=== PATIENT | male | born 1995 | race African-American/Black ===

== ENCOUNTER 2018-01-30 20:30 | Inpatient (IN) ==
[2018-01-30] MEDS ORDERED: Sodium Chlor 0.9% Inj 500 ML IV.SIG ONE (21:07)
--- NOTE | 2018-01-30 21:10 | ED ---
HPI General Chief Complaint: Chest Pain Stated Complaint: Chest/back pain Time Seen by Provider: 01/30/18 21:06 Source: patient Limitations: no limitations History of Present Illness HPI narrative: The patient is a 22 year old male who presents to the [facility] emergency department with a history of reportedly not feeling well over the last 2 months. He reports that he began to have back pain between his shoulder blades approximately 2 months ago. He reports that this is the first time that he is being seen for this. He reports that 2 days ago he began to have chest pain along the right sternal border. He reports that it is tender to touch. He reports that his recent history is also been complicated by last week having a subjective fever and sore throat. He denies having any cough or congestion. He reports that he had a subjective fever from Wednesday through . He reports that the fever and sore throat have improved. He reports having one episode of vomiting this morning. He denies having any diarrhea. His last bowel movement was earlier today. He denies having any blood in his stool or black or tarry stools. He reports that he has not been eating well over the last week as he has not felt well. He reports that he believes that he has lost weight, however he is not sure how much. He denies having a primary care physician. He denies any history of IV drug use. The patient reports that the pain in his chest and in his back is an aching sensation that is constant. He reports that the severity is moderate. He denies taking any medications for the pain. I review of systems otherwise, the patient denies having any headache, nasal discharge, chest congestion, neck pain, shortness of breath, abdominal pain, urinary symptoms, or neurologic symptoms. Complete Quality Measures for STEMI Alert Patients Onset (ago): day(s) (2 days ago) Duration: constant Pain location: right chest (right sternal border) Severity: moderate Pain radiation: none Relieving factors: nothing Exacerbating factors: nothing Context: recent illness (sorethroat with subjective fever last week) Associated symptoms: nausea and vomiting (x 1 this am) Treatments prior to arrival chest pain: none Related Data Home Medications Medication Instructions Recorded Confirmed No Known Home Medications 01/30/18 01/30/18 Allergies Allergy/AdvReac Type Severity Reaction Status Date / Time No Known Allergies Allergy Unverified 01/30/18 20:54 Review of Systems ROS Unobtainable All other systems reviewed negative except as stated in HPI Constitutional Reports fever(s), Reports poor appetite and Reports weight loss Eyes Denies change in vision ENT Denies headache(s), Denies nasal congestion and Reports sore throat Cardiovascular Reports chest pain Respiratory Denies chest congestion, Denies cough and Denies dyspnea Gastrointestinal Denies abdominal pain, Denies diarrhea, Reports nausea and Reports vomiting Genitourinary Denies difficulty urinating Musculoskeletal Reports back pain and Reports myalgias Integumentary/Breasts Denies rash Neurologic Denies headache(s), Denies focal weakness, Denies sensory deficit, Denies tingling, Denies weakness and Reports other (He denies having any loss of bowel or bladder control) Psychiatric Denies depression Endocrine Denies polyuria Hematologic/Lymphatic Denies easy bruising PMFSH History History Provided By: Patient Medical History Medical History Patient denies medical problems (Acute) Surgical History Surgical History No history of previous surgery (Acute) Social History Social History Substance History: No History of Abuse Second Hand Smoke Exposure: No Smoking Status: Never smoker How Often Do You Have a Drink Containing Alcohol: 2 to 3 times a week Recent Travel in [facility] within the Last 8 Weeks: No Recent Out of Country Travel within the Last 8 Weeks: No Exam Const General: cooperative, no acute distress and well developed Nutritional Appearance: well nourished Orientation: oriented x3 HENMT Head: normocephalic and atraumatic Nose: no nasal discharge and no epistaxis Mouth: moist mucous membranes Throat: posterior oropharynx normal Eyes Sclera: normal sclerae Pupils: PERRL Neck Neck: no meningeal signs, trachea midline and no JVD Resp Effort & Inspection: no use of accessory muscles Auscultation: clear to auscultation bilaterally Cardio Rate: regular rate Rhythm: regular rhythm Heart Sounds: no murmurs GI Inspection: non-distended Palpation: soft, no hepatosplenomegaly and nontender Back/Spine/Pelvis Back: no CVA tenderness Cervical Spine: normal cervical lordosis Thoracic/Lumbar Spine: paraspinal tenderness (Mid thoracic paraspinal musculature bilaterally just between the shoulder blades. No spasm noted. No step-off or crepitus. No erythema or ecchymosis.) Skin General: dry skin (warm) Neuro General: alert, awake and oriented x3 Cranial Nerves: CN's II-XI intact bilaterally Speech: speech normal Motor: no movement abnormalities noted Sensory Exam: no sensory deficits noted Extrem General: normal to inspection, no clubbing, no cyanosis and no edema Psych Mood: congruent mood Affect: normal affect Judgment: judgment good Course Hospital Course: During the course of the patient's emergency department visit, the patient's history, examination, and differential diagnosis were reviewed with the patient. The patient was placed on a teletypesetter monitor with oximetry and frequent blood pressure monitoring. The patient had IV access obtained and blood work sent for analysis. The patient was initially provided normal saline at 500 mL bolus 1, aspirin 324 mg p.o. 1. Reevaluation(s) Reevaluation #1: The patient was reevaluated. The patient's results were discussed with him. The patient is agreeable with the plan for admission. Time: 23:16 Consultations Consultation #1: The patient's case including history, pertinent physical examination findings, and laboratory studies were discussed with Dr. Ellis. It was agreed that the patient would be admitted to the hospitalist service. Time: 23:14 Initial Documented Vital Signs Temperature 98.3 F 01/30/18 20:54 Pulse Rate 60 01/30/18 20:54 Respiratory Rate 16 01/30/18 20:54 Blood Pressure 117/59 L 01/30/18 20:54 Pulse Oximetry 99 01/30/18 20:54 Last Documented Vital Signs Temperature 97.3 F L 01/31/18 04:00 Pulse Rate 63 01/31/18 04:00 Respiratory Rate 16 01/31/18 04:00 Blood Pressure 143/77 H 01/31/18 04:00 Pulse Oximetry 100 01/31/18 04:00 Clinical Decision Support PERC Rule Age greater than or equal to 50: No HR greather than or equal to 100: No Sa02 on room air is less than 95%: No Unilateral Leg Swelling: No Hemoptysis: No Recent Surgery or Trauma: No Prior PE or DVT: No Hormone Use: No Wells' Criteria Questions Clinical Signs and Symptoms of DVT: No PE is primary diagnosis or equally likely: No Heart Rate greater than 100: No Immobilized at least 3 days or Surgery in previous 4 weeks: No Previous, objectively diagnosed PE or DVT: No Hemoptysis: No Malignancy with treatment within 6 months or palliative: No Wells' Criteria Score Wells' Criteria Score: 0 Medical Decision Making MDM Narrative Medical decision making narrative: The patient's well score is 0, PERC rule is low likelihood for pulmonary embolism, therefore no additional testing has been ordered to evaluate for this. Given the patient's back pain, reported history of recent fevers imaging has been ordered to further evaluate. The patient's diagnostic testing is remarkable for a white count of 1.9, platelets 204 with a differential remarkable for a lymphocytosis at 78, hemoglobin 14.5, absolute neutrophil count 0.3. Given the patient's reported fevers at home and neutropenia, the patient was started on broad-spectrum antibiotic to include cefepime 2 g IV after blood cultures x2 were drawn and a lactic acid was sent as a part of the patient's workup. PT 10, PTT 39.1, chemistry is remarkable for a total protein of 8.5, AST 95, albumin 3.3, ALT 96 , magnesium is elevated at 2.7, lipase within normal limits, TSH is elevated at 3.76, CPK 426 with a normal MB percent, troponin I less than 0.02, urinalysis was unremarkable. Urine drug screen was negative, alcohol level less than 3. A chest x-ray showed no acute abnormality. CT scan of the C-spine T-spine showed no acute abnormality. The patient's results were discussed with the patient, including the plan of care. I explained that further testing and/ or monitoring is indicated based on the patient's history, examination, and/ or laboratory findings. Therefore, I recommended admission for additional evaluation. The patient expressed understanding and was agreeable with this plan. The patient was admitted to the hospital in guarded condition and sent to a bed under the care of [facility] service. Lab Data Lab results reviewed: Yes I reviewed the patient's lab results. Result diagrams: 01/30/18 21:15 01/30/18 21:15 Lab Results 01/30/18 01/30/18 01/30/18 Range/Units 21:15 21:15 21:15 WBC 1.9 L (4.0-11.0) th/mm3 RBC 5.29 (4.50-5.90) mil/mm3 Hgb 14.5 (13.0-17.0) gm/dL Hct 43.6 (39.0-51.0) % MCV 82.4 (80.0-100.0) fL MCH 27.4 (27.0-34.0) pg MCHC 33.3 (32.0-36.0) % RDW 14.1 (11.6-17.2) % Plt Count 204 (150-450) th/mm3 MPV 7.9 (7.0-11.0) fL Prelim Diff (Auto) Manual diff required WBC Differential Manual diff final Seg Neuts % (Manual) 14 L (16-70) % Lymphocytes % (Manual) 78 H (9-44) % Monocytes % (Manual) 8 (0-8) % Abs Neuts (Manual) 0.3 L* (1.8-7.7) th/mm3 Differential Comment . PT 10.0 (9.8-11.6) sec INR 1.0 Ratio APTT 39.1 H (24.3-30.1) sec Sodium (136-145) meq/L Potassium (3.5-5.1) meq/L Chloride (98-107) meq/L Carbon Dioxide (21.0-32.0) meq/L Anion Gap (5-15) meq/L BUN (7-18) mg/dL Creatinine (0.60-1.30) mg/dL Estimated GFR (>89) mL/min Random Glucose (74-106) mg/dL Lactic Acid (0.4-2.0) mmol/L Calcium (8.5-10.1) mg/dL Magnesium 2.7 H (1.5-2.5) mg/dL Total Bilirubin (0.2-1.0) mg/dL AST (15-37) U/L ALT (12-78) U/L Alkaline Phosphatase (45-117) U/L Total Creatine Kinase 426 H (39-308) U/L CK-MB (CK-2) 1.2 (0.5-3.6) ng/mL CK-MB (CK-2) % 0.3 (0.0-4.0) % Troponin I Less than 0.02 L (0.02-0.05) ng/mL Total Protein (6.4-8.2) g/dL Albumin (3.4-5.0) g/dL Lipase 204 (73-393) U/L TSH (0.358-3.740) uIU/mL Urine Color (Yellw/Straw) Urine Clarity (Clear) Urine pH (5.0-8.5) Ur Specific [place] (1.002-1.035) Urine Protein (Neg-Trace) mg/dL Urine Glucose (UA) (Negative) mg/dL Urine Ketones (Negative) mg/dL Urine Occult Blood (Negative) Urine Nitrate (Negative) Urine Bilirubin (Negative) Urine Urobilinogen (Less than 2) mg/dL Ur Leukocyte Esterase (Negative) Urine RBC (0-3) /hpf Urine WBC (0-5) /hpf Micro UA Comment Urine Culture Comments Urine Opiates Screen (Neg) Ur Barbiturates Screen (Neg) Ur Amphetamines Screen (Neg) U Benzodiazepines Scrn (Neg) Urine Cocaine Screen (Neg) U Cannabinoids Screen (Neg) Serum Alcohol Less than 3 (0-5) mg/dL Monoscreen (Neg) 01/30/18 01/30/18 01/30/18 Range/Units 21:15 21:25 21:25 WBC (4.0-11.0) th/mm3 RBC (4.50-5.90) mil/mm3 Hgb (13.0-17.0) gm/dL Hct (39.0-51.0) % MCV (80.0-100.0) fL MCH (27.0-34.0) pg MCHC (32.0-36.0) % RDW (11.6-17.2) % Plt Count (150-450) th/mm3 MPV (7.0-11.0) fL Prelim Diff (Auto) WBC Differential Seg Neuts % (Manual) (16-70) % Lymphocytes % (Manual) (9-44) % Monocytes % (Manual) (0-8) % Abs Neuts (Manual) (1.8-7.7) th/mm3 Differential Comment PT (9.8-11.6) sec INR Ratio APTT (24.3-30.1) sec Sodium 141 (136-145) meq/L Potassium 4.0 (3.5-5.1) meq/L Chloride 106 (98-107) meq/L Carbon Dioxide 28.1 (21.0-32.0) meq/L Anion Gap 7 (5-15) meq/L BUN 10 (7-18) mg/dL Creatinine 1.03 (0.60-1.30) mg/dL Estimated GFR 89 (>89) mL/min Random Glucose 76 (74-106) mg/dL Lactic Acid (0.4-2.0) mmol/L Calcium 8.6 (8.5-10.1) mg/dL Magnesium (1.5-2.5) mg/dL Total Bilirubin 0.2 (0.2-1.0) mg/dL AST 95 H (15-37) U/L ALT 96 H (12-78) U/L Alkaline Phosphatase 95 (45-117) U/L Total Creatine Kinase (39-308) U/L CK-MB (CK-2) (0.5-3.6) ng/mL CK-MB (CK-2) % (0.0-4.0) % Troponin I (0.02-0.05) ng/mL Total Protein 8.5 H (6.4-8.2) g/dL Albumin 3.3 L (3.4-5.0) g/dL Lipase (73-393) U/L TSH 3.760 H (0.358-3.740) uIU/mL Urine Color Yellow (Yellw/Straw) Urine Clarity Clear (Clear) Urine pH 6.0 (5.0-8.5) Ur Specific [place] 1.014 (1.002-1.035) Urine Protein Negative (Neg-Trace) mg/dL Urine Glucose (UA) Negative (Negative) mg/dL Urine Ketones Negative (Negative) mg/dL Urine Occult Blood Negative (Negative) Urine Nitrate Negative (Negative) Urine Bilirubin Negative (Negative) Urine Urobilinogen Less than 2 (Less than 2) mg/dL Ur Leukocyte Esterase Negative (Negative) Urine RBC Less than 1 (0-3) /hpf Urine WBC 2 (0-5) /hpf Micro UA Comment Culture not ind Urine Culture Comments Culture not ind Urine Opiates Screen Neg (Neg) Ur Barbiturates Screen Neg (Neg) Ur Amphetamines Screen Neg (Neg) U Benzodiazepines Scrn Neg (Neg) Urine Cocaine Screen Neg (Neg) U Cannabinoids Screen Neg (Neg) Serum Alcohol (0-5) mg/dL Monoscreen (Neg) 01/30/18 01/31/18 Range/Units 23:30 01:10 WBC (4.0-11.0) th/mm3 RBC (4.50-5.90) mil/mm3 Hgb (13.0-17.0) gm/dL Hct (39.0-51.0) % MCV (80.0-100.0) fL MCH (27.0-34.0) pg MCHC (32.0-36.0) % RDW (11.6-17.2) % Plt Count (150-450) th/mm3 MPV (7.0-11.0) fL Prelim Diff (Auto) WBC Differential Seg Neuts % (Manual) (16-70) % Lymphocytes % (Manual) (9-44) % Monocytes % (Manual) (0-8) % Abs Neuts (Manual) (1.8-7.7) th/mm3 Differential Comment PT (9.8-11.6) sec INR Ratio APTT (24.3-30.1) sec Sodium (136-145) meq/L Potassium (3.5-5.1) meq/L Chloride (98-107) meq/L Carbon Dioxide (21.0-32.0) meq/L Anion Gap (5-15) meq/L BUN (7-18) mg/dL Creatinine (0.60-1.30) mg/dL Estimated GFR (>89) mL/min Random Glucose (74-106) mg/dL Lactic Acid 1.1 (0.4-2.0) mmol/L Calcium (8.5-10.1) mg/dL Magnesium (1.5-2.5) mg/dL Total Bilirubin (0.2-1.0) mg/dL AST (15-37) U/L ALT (12-78) U/L Alkaline Phosphatase (45-117) U/L Total Creatine Kinase (39-308) U/L CK-MB (CK-2) (0.5-3.6) ng/mL CK-MB (CK-2) % (0.0-4.0) % Troponin I (0.02-0.05) ng/mL Total Protein (6.4-8.2) g/dL Albumin (3.4-5.0) g/dL Lipase (73-393) U/L TSH (0.358-3.740) uIU/mL Urine Color (Yellw/Straw) Urine Clarity (Clear) Urine pH (5.0-8.5) Ur Specific [place] (1.002-1.035) Urine Protein (Neg-Trace) mg/dL Urine Glucose (UA) (Negative) mg/dL Urine Ketones (Negative) mg/dL Urine Occult Blood (Negative) Urine Nitrate (Negative) Urine Bilirubin (Negative) Urine Urobilinogen (Less than 2) mg/dL Ur Leukocyte Esterase (Negative) Urine RBC (0-3) /hpf Urine WBC (0-5) /hpf Micro UA Comment Urine Culture Comments Urine Opiates Screen (Neg) Ur Barbiturates Screen (Neg) Ur Amphetamines Screen (Neg) U Benzodiazepines Scrn (Neg) Urine Cocaine Screen (Neg) U Cannabinoids Screen (Neg) Serum Alcohol (0-5) mg/dL Monoscreen Neg (Neg) Imaging Data Radiologist's impression: ITS Impressions Chest X-Ray 01/30/18 21:07 CONCLUSION: No active disease. Thoracic Spine CT 01/30/18 21:19 CONCLUSION: 1. Unremarkable CT of the thoracic spine. ECG Data Attestation: I personally reviewed and interpreted this ECG as follows: Interpretation: The patient had an EKG done on arrival. The patient's EKG shows a sinus bradycardia heart rate of 56, QRS duration 84 ms, QTC [address] segment elevation is noted. T waves are inverted in lead III. Discharge Plan Discharge Disposition Patient Disposition: 30 Still Patient Discharge Details Discharge Problem: Neutropenia with fever Physicians Team ED Provider: Deepti Tucker Primary Care Provider: Primary Care Hasmukh,Cookie Attending Provider: Abdirahman Gu Other Providers: Silverio Heredia Status ED Status: Left Department Discharge Information Discharge Date/Time: 01/31/18 01:26
[2018-01-30 21:39] LABS: Hematocrit 43.6 % (39.0-51.0); Hemoglobin 14.5 gm/dL (13.0-17.0); Mean Corpuscular HGB Conc 33.3 % (32.0-36.0); Mean Corpuscular Hemoglobin 27.4 pg (27.0-34.0); Mean Corpuscular Volume 82.4 fL (80.0-100.0); Mean Platelet Volume 7.9 fL (7.0-11.0); Platelet Count 204 th/mm3 (150-450); Red Blood Count 5.29 mil/mm3 (4.50-5.90); Red Cell Distribution Width 14.1 % (11.6-17.2); White Blood Count 1.9 th/mm3 (4.0-11.0)
--- NOTE | 2018-01-30 21:39 | XR ---
EXAM DATE: 01/30/2018 9:34 PM EDT AGE/SEX: 22 years / Male INDICATIONS: Chest and back pain CLINICAL DATA: This is the patient's initial encounter. Patient reports that signs and symptoms have been present for 1 day and indicates a pain score of 4/10. MEDICAL/SURGICAL HISTORY: None. None. COMPARISON: No prior exams available for comparison. FINDINGS: A single AP view of the chest demonstrates the lungs to be symmetrically aerated without evidence of mass, infiltrate or effusion. The cardiomediastinal contours are unremarkable. Osseous structures a re intact. CONCLUSION: No active disease. Electronically signed by: Zachary Villalobos MD 01/30/2018 9:38 PM EDT
[2018-01-30 21:42] LABS: Bilirubin,Urine Negative (Negative); Clarity,Urine Clear (Clear); Color,Urine Yellow (Yellw/Straw); Glucose,Urine (UA) Negative (Negative); Leukocyte Esterase,Urine Negative (Negative); Nitrite,Urine Negative (Negative); Specific Gravity,Urine 1.014 (1.002-1.035)
[2018-01-30 21:47] LABS: Amphetamine Screen,Urine Neg (Neg); Barbiturate Screen,Urine Neg (Neg); Cannabinoid Screen,Urine Neg (Neg); Cocaine Screen,Urine Neg (Neg)
[2018-01-30 21:48] LABS: Activated Partial Thrombo Time 39.1 sec (24.3-30.1)
[2018-01-30 21:51] LABS: Opiate Screen,Urine Neg (Neg)
--- NOTE | 2018-01-30 21:53 | CT ---
EXAM DATE: 01/30/2018 9:46 PM EDT AGE/SEX: 22 years / Male INDICATIONS: Back pain; rule out osteomyelitis. CLINICAL DATA: This is the patient's initial encounter. Patient reports that signs and symptoms have been present for 1 day and indicates a pain score of 7/10. MEDICAL/SURGICAL HISTORY: None. None. RADIATION DOSE: 17.61 CTDI (mGy) COMPARISON: No prior exams available for comparison. TECHNIQUE: Contiguous axial images were acquired using a multirow detector CT scanner without contra st. Multiplanar reconstruction in the sagittal and coronal planes was performed. Using automated exp osure control and adjustment of the mA and/or kV according to patient size, radiation dose was kept a s low as reasonably achievable to obtain optimal diagnostic quality images. DICOM format image data is available electronically for review and comparison. FINDINGS: No acute fracture or spondylolisthesis. No bony destructive changes are identified. No bony canal or foraminal stenosis is identified. CONCLUSION: 1. Unremarkable CT of the thoracic spine. Electronically signed by: Zachary Villalobos MD 01/30/2018 9:52 PM EDT
[2018-01-30 21:56] LABS: Lipase 204 U/L (73-393); Magnesium 2.7 mg/dL (1.5-2.5)
[2018-01-30 21:57] LABS: Albumin 3.3 g/dL (3.4-5.0); Anion Gap 7 meq/L (5-15); Aspartate Aminotransferase 95 U/L (15-37); Blood Urea Nitrogen 10 mg/dL (7-18); Calcium 8.6 mg/dL (8.5-10.1); Carbon Dioxide 28.1 meq/L (21.0-32.0); Chloride 106 meq/L (98-107); Glomerular Filtration Rate 89 mL/min (>89); Glucose,Random 76 mg/dL (74-106); Sodium 141 meq/L (136-145)
[2018-01-30 21:58] LABS: Creatine Kinase 426 U/L (39-308)
[2018-01-30 22:08] LABS: Alanine Aminotransferase 96 U/L (12-78); Alkaline Phosphatase 95 U/L (45-117); Total Protein 8.5 g/dL (6.4-8.2)
[2018-01-30 22:11] LABS: CKMB Percent 0.3 % (0.0-4.0); Creatine Kinase MB 1.2 ng/mL (0.5-3.6)
[2018-01-30 22:18] LABS: Lymphocytes 78 % (9-44); Monocytes 8 % (0-8)
[2018-01-30] MEDS ORDERED: Sod Chloride 0.9% Inj 1,000 ML IV.SIG ONE (23:08)
[2018-01-31] MEDS ORDERED: Acetaminophen 325 MG Tablet PO PRN (00:44)
[2018-01-31] MEDS ORDERED: Bisacodyl 10 MG Supp RECTAL PRN (00:44)
--- NOTE | 2018-01-31 00:46 | P.HP ---
History of Present Illness Service: [facility] Primary Care Physician: No Primary Care Physician Chief Complaint: generalized malaise History of Present Illness: 22-year-old male with no significant past medical history presents the emergency department for the evaluation of multiple complaints. The patient reports he has had chest, abdominal and back pain for the past 1.5 months. He also reports that he had a sore throat and a fever that started on Wednesday with accompanying emesis 2. The patient does not have any known sick contacts. Inpatient Certification: I certify that the inpatient services were ordered in accordance with Medicare regulations governing the order. This includes certification that hospital inpatient services are reasonable and necessary and in the case of services not specified as inpatient-only under 42 CFR 419.22(n), that they are appropriately provided as inpatient services in accordance to with the 2-midnight benchmark under 43 CFR 412.3(e) Review of Systems Positive fever/chills Denies blurry vision, otorrhea, rhinorrhea Positive sore throat and cough Positive chest pain, no palpitations No shortness of breath or wheezing Positive abdominal pain Denies constipation/diarrhea. Positive nausea/vomiting Denies muscle pain Denies focal weakness No rashes PMFSH - History History Provided By: Patient - Medical / Surgical Hx Neg / Unobtainable Medical Problems Denied: Yes Surgical History: No Previous Surgery - Medical History Medical History: Medical History (Last Reviewed 01/30/18 @ 21:26 by Deepti Tucker MD) Patient denies medical problems - Surgical History Surgical History: Surgical History (Last Reviewed 01/30/18 @ 21:26 by Deepti Tucker MD) No history of previous surgery - Tobacco History Second Hand Smoke Exposure: No Tobacco Use In Past 30 Days: No Smoking Status: Never smoker - Alcohol History How Often Do You Have a Drink Containing Alcohol: 2 to 3 times a week - Substance Use History Substance History: No History of Abuse - Travel History Recent Travel in the [place] Within the Last 8 Weeks: No Recent Travel Out of the Country Within the Last 8 Weeks: No - Immunization History Tetanus Immunization: Unsure Hx Influenza Vaccine This Season: No Medications and Allergies Active Medications: Active Medications Sodium Chloride (Ns Flush) 2 ml IV.FLUSH UNSCH PRN PRN Reason: FLUSH AFTER USING IV ACCESS Allergies Allergy/AdvReac Type Severity Reaction Status Date / Time No Known Allergies Allergy Unverified 01/30/18 20:54 Home Medications Medication Instructions Recorded Confirmed Type No Known Home Medications 01/30/18 01/30/18 History Exam Vital signs: Vital Signs 01/30/18 20:54 01/30/18 21:08 01/30/18 21:16 Temperature 98.3 F Pulse Rate 60 61 68 Pulse Rate [Left Radial] 65 Respiratory Rate 16 18 16 Blood Pressure 117/59 L 123/73 126/76 Blood Pressure [Left Arm] 126/76 Blood Pressure [Right Arm] 123/73 Pulse Oximetry 99 99 100 Intake & Output 01/30/18 01/30/18 01/31/18 06:59 18:59 06:59 Weight 74.843 kg Narrative: Gen.: No acute distress Head: Normocephalic. Atraumatic. EENT: Pupils equal round and reactive to light. Nose without drainage. Airway intact. Throat without injection. Cardiovascular: Regular rate and rhythm. No murmurs, rubs or gallops. Respiratory: Lungs clear to auscultation bilaterally. No wheezes or rhonchi. Abdomen: Soft, nontender, nondistended. No peritoneal signs. Musculoskeletal: No gross deformities. No edema. Skin: No obvious rashes or erythema. Neuro: Sensory and motor grossly intact. Cranial nerves II through XII grossly intact. Psych: Appropriate mood and affect Results - Labs CBC & Chem 7: 01/30/18 21:15 01/30/18 21:15 Labs: Laboratory Results - last 24 hr 01/30/18 01/30/18 01/30/18 21:15 21:15 21:15 WBC 1.9 L RBC 5.29 Hgb 14.5 Hct 43.6 MCV 82.4 MCH 27.4 MCHC 33.3 RDW 14.1 Plt Count 204 MPV 7.9 Prelim Diff (Auto) Manual diff required WBC Differential Manual diff final Seg Neuts % (Manual) 14 L Lymphocytes % (Manual) 78 H Monocytes % (Manual) 8 Abs Neuts (Manual) 0.3 L* Differential Comment . PT 10.0 INR 1.0 APTT 39.1 H Sodium Potassium Chloride Carbon Dioxide Anion Gap BUN Creatinine Estimated GFR Random Glucose Lactic Acid Calcium Magnesium 2.7 H Total Bilirubin AST ALT Alkaline Phosphatase Total Creatine Kinase 426 H CK-MB (CK-2) 1.2 CK-MB (CK-2) % 0.3 Troponin I Less than 0.02 L Total Protein Albumin Lipase 204 TSH Urine Color Urine Clarity Urine pH Ur Specific [place] Urine Protein Urine Glucose (UA) Urine Ketones Urine Occult Blood Urine Nitrate Urine Bilirubin Urine Urobilinogen Ur Leukocyte Esterase Urine RBC Urine WBC Micro UA Comment Urine Culture Comments Urine Opiates Screen Ur Barbiturates Screen Ur Amphetamines Screen U Benzodiazepines Scrn Urine Cocaine Screen U Cannabinoids Screen Serum Alcohol Less than 3 01/30/18 01/30/18 01/30/18 21:15 21:25 21:25 WBC RBC Hgb Hct MCV MCH MCHC RDW Plt Count MPV Prelim Diff (Auto) WBC Differential Seg Neuts % (Manual) Lymphocytes % (Manual) Monocytes % (Manual) Abs Neuts (Manual) Differential Comment PT INR APTT Sodium 141 Potassium 4.0 Chloride 106 Carbon Dioxide 28.1 Anion Gap 7 BUN 10 Creatinine 1.03 Estimated GFR 89 Random Glucose 76 Lactic Acid Calcium 8.6 Magnesium Total Bilirubin 0.2 AST 95 H ALT 96 H Alkaline Phosphatase 95 Total Creatine Kinase CK-MB (CK-2) CK-MB (CK-2) % Troponin I Total Protein 8.5 H Albumin 3.3 L Lipase TSH 3.760 H Urine Color Yellow Urine Clarity Clear Urine pH 6.0 Ur Specific [place] 1.014 Urine Protein Negative Urine Glucose (UA) Negative Urine Ketones Negative Urine Occult Blood Negative Urine Nitrate Negative Urine Bilirubin Negative Urine Urobilinogen Less than 2 Ur Leukocyte Esterase Negative Urine RBC Less than 1 Urine WBC 2 Micro UA Comment Culture not ind Urine Culture Comments Culture not ind Urine Opiates Screen Neg Ur Barbiturates Screen Neg Ur Amphetamines Screen Neg U Benzodiazepines Scrn Neg Urine Cocaine Screen Neg U Cannabinoids Screen Neg Serum Alcohol 01/30/18 23:30 WBC RBC Hgb Hct MCV MCH MCHC RDW Plt Count MPV Prelim Diff (Auto) WBC Differential Seg Neuts % (Manual) Lymphocytes % (Manual) Monocytes % (Manual) Abs Neuts (Manual) Differential Comment PT INR APTT Sodium Potassium Chloride Carbon Dioxide Anion Gap BUN Creatinine Estimated GFR Random Glucose Lactic Acid 1.1 Calcium Magnesium Total Bilirubin AST ALT Alkaline Phosphatase Total Creatine Kinase CK-MB (CK-2) CK-MB (CK-2) % Troponin I Total Protein Albumin Lipase TSH Urine Color Urine Clarity Urine pH Ur Specific [place] Urine Protein Urine Glucose (UA) Urine Ketones Urine Occult Blood Urine Nitrate Urine Bilirubin Urine Urobilinogen Ur Leukocyte Esterase Urine RBC Urine WBC Micro UA Comment Urine Culture Comments Urine Opiates Screen Ur Barbiturates Screen Ur Amphetamines Screen U Benzodiazepines Scrn Urine Cocaine Screen U Cannabinoids Screen Serum Alcohol - Imaging Impressions Chest X-Ray 01/30/18 21:07 CONCLUSION: No active disease. Thoracic Spine CT 01/30/18 21:19 CONCLUSION: 1. Unremarkable CT of the thoracic spine. Caprini VTE Risk Assessment Caprini VTE Risk Assessment: No/Low Risk (score <= 1) Caprini Risk Assessment Model: Point Value = 1 Point Value = 2 Point Value = 3 Point Value = 5 Age 41-60 Minor surgery BMI > 25 kg/m2 Swollen legs Varicose veins or History of unexplained or recurrent spontaneous Oral contraceptives or hormone replacement Sepsis (< 1 month) Serious lung disease, including pneumonia (< 1 month) Abnormal pulmonary function Acute myocardial infarction Congestive heart failure (< 1 month) History of inflammatory bowel disease Medical patient at bed rest Age 61-74 Arthroscopic surgery Major open surgery (> 45 min) Laparoscopic surgery (> 45 min) Malignancy Confined to bed (> 72 hours) Immobilizing plaster cast Central venous access Age >= 75 History of VTE Family history of VTE Factor V Leiden Prothrombin [id number] Lupus anticoagulant Anticardiolipin antibodies Elevated serum homocysteine Heparin-induced thrombocytopenia Other congenital or acquired thrombophilia Stroke (< 1 month) Elective arthroplasty Hip, pelvis, or leg fracture Acute spinal cord injury (< 1 month) Prophylaxis Regimen: Total Risk Factor Score Risk Level Prophylaxis Regimen 0-1 Low Early ambulation 2 Moderate Order ONE of the following: *Sequential Compression Device (SCD) *Heparin 5000 units SQ BID 3-4 Higher Order ONE of the following medications: *Heparin 5000 units SQ TID *Enoxaparin/Lovenox 40 mg SQ daily (WT < 150 kg, CrCl > 30 mL/min) *Enoxaparin/Lovenox 30 mg SQ daily (WT < 150 kg, CrCl > 10-29 mL/min) *Enoxaparin/Lovenox 30 mg SQ BID (WT < 150 kg, CrCl > 30 mL/min) AND/OR *Sequential Compression Device (SCD) 5 or more Highest Order ONE of the following medications: *Heparin 5000 units SQ TID (Preferred with Epidurals) *Enoxaparin/Lovenox 40 mg SQ daily (WT < 150 kg, CrCl > 30 mL/min) *Enoxaparin/Lovenox 30 mg SQ daily (WT < 150 kg, CrCl > 10-29 mL/min) *Enoxaparin/Lovenox 30 mg SQ BID (WT < 150 kg, CrCl > 30 mL/min) AND *Sequential Compression Device (SCD) Assessment and Plan - Plan Assessment/plan: 1. Generalized malaise/neutropenia Unclear etiology [place] pending Patient with absolute neutrophil count of 0.3 with 1.9 WBCs Hematology consulted, appreciate assistance Patient reports taking no medications at home 2. Transaminitis AST/ALT elevated Hepatitis profile pending Monitor FEN Regular diet Electrolytes: Monitor and replete as needed
[2018-01-31 01:36] LABS: Mono Screen Neg (Neg)
--- NOTE | 2018-01-31 09:37 | ECG ---
Date Performed: 01/30/2018 Time Performed: 21:11:30 PTAGE: 22 years EKG: SINUS BRADYCARDIA BORDERLINE ECG NO PREVIOUS TRACING DOCTOR: Jesús Syed Interpretating Date/Time 01/31/2018 09:32:40
--- NOTE | 2018-01-31 09:46 | P.PNIM ---
Subjective Interval history: Addendum to this morning's H&P: Patient seen and examined, lying in bed comfortably no apparent distress. Patient denies any pain. Patient is and speaks Slovak, Stratus used to communicate. Awaiting hematology/oncology consult, input and recommendations pending. Lab work pending. Vital signs stable. Afebrile. Will place on neutropenic precautions. Physical Exam Vital signs: Vital Signs 01/30/18 20:54 01/30/18 21:08 01/30/18 21:16 Temperature 98.3 F Pulse Rate 60 61 68 Pulse Rate [Left Radial] 65 Respiratory Rate 16 18 16 Blood Pressure 117/59 L 123/73 126/76 Blood Pressure [Left Arm] 126/76 Blood Pressure [Right Arm] 123/73 Pulse Oximetry 99 99 100 01/31/18 01:25 01/31/18 04:00 01/31/18 08:00 Temperature 97.9 F 97.3 F L 97.0 F L Pulse Rate 52 L 63 51 L Pulse Rate [Left Radial] Respiratory Rate 16 16 18 Blood Pressure 121/74 143/77 H 126/72 Blood Pressure [Left Arm] Blood Pressure [Right Arm] Pulse Oximetry 100 100 100 01/31/18 09:15 Temperature Pulse Rate Pulse Rate [Left Radial] Respiratory Rate Blood Pressure Blood Pressure [Left Arm] Blood Pressure [Right Arm] Pulse Oximetry 98 Intake & Output 01/30/18 01/31/18 01/31/18 18:59 06:59 18:59 Intake Total 240 / 240 Balance 240 / 240 Weight 75.7 kg Intake: Oral 240 / 240 Other: # Voids 1 Date of Last Bowel Movement 01/30/18 # Bowel Movements 0 Weight On Admission 74.84 kg - Constitutional no acute distress - Routine HEENT Exam Head: Present: normocephalic Eye: Present: EOMI, PERRL ENT: Present: mucous membranes moist - Routine Neck Exam Present: supple - Routine Cardiovascular Exam Present: RRR - Routine Abdominal Exam Present: soft - Routine Skin Exam Present: intact - Routine Neurological Exam Present: alert, oriented X3 - Detailed Neurological Exam: Coma Scale Eye Opening: Spontaneous Verbal Response: Oriented Motor Response: Obey commands Bess Coma Scale Total: 15 - Routine Psychiatric Exam Present: normal affect Results - Labs CBC & Chem 7: 01/30/18 21:15 01/30/18 21:15 Laboratory Results - last 24 hr 01/30/18 01/30/18 01/30/18 21:15 21:15 21:15 WBC 1.9 L RBC 5.29 Hgb 14.5 Hct 43.6 MCV 82.4 MCH 27.4 MCHC 33.3 RDW 14.1 Plt Count 204 MPV 7.9 Prelim Diff (Auto) Manual diff required WBC Differential Manual diff final Seg Neuts % (Manual) 14 L Lymphocytes % (Manual) 78 H Monocytes % (Manual) 8 Abs Neuts (Manual) 0.3 L* Differential Comment . PT 10.0 INR 1.0 APTT 39.1 H Sodium Potassium Chloride Carbon Dioxide Anion Gap BUN Creatinine Estimated GFR Random Glucose Lactic Acid Calcium Magnesium 2.7 H Total Bilirubin AST ALT Alkaline Phosphatase Total Creatine Kinase 426 H CK-MB (CK-2) 1.2 CK-MB (CK-2) % 0.3 Troponin I Less than 0.02 L Total Protein Albumin Lipase 204 TSH Urine Color Urine Clarity Urine pH Ur Specific [place] Urine Protein Urine Glucose (UA) Urine Ketones Urine Occult Blood Urine Nitrate Urine Bilirubin Urine Urobilinogen Ur Leukocyte Esterase Urine RBC Urine WBC Micro UA Comment Urine Culture Comments Urine Opiates Screen Ur Barbiturates Screen Ur Amphetamines Screen U Benzodiazepines Scrn Urine Cocaine Screen U Cannabinoids Screen Serum Alcohol Less than 3 Monoscreen 01/30/18 01/30/18 01/30/18 21:15 21:25 21:25 WBC RBC Hgb Hct MCV MCH MCHC RDW Plt Count MPV Prelim Diff (Auto) WBC Differential Seg Neuts % (Manual) Lymphocytes % (Manual) Monocytes % (Manual) Abs Neuts (Manual) Differential Comment PT INR APTT Sodium 141 Potassium 4.0 Chloride 106 Carbon Dioxide 28.1 Anion Gap 7 BUN 10 Creatinine 1.03 Estimated GFR 89 Random Glucose 76 Lactic Acid Calcium 8.6 Magnesium Total Bilirubin 0.2 AST 95 H ALT 96 H Alkaline Phosphatase 95 Total Creatine Kinase CK-MB (CK-2) CK-MB (CK-2) % Troponin I Total Protein 8.5 H Albumin 3.3 L Lipase TSH 3.760 H Urine Color Yellow Urine Clarity Clear Urine pH 6.0 Ur Specific [place] 1.014 Urine Protein Negative Urine Glucose (UA) Negative Urine Ketones Negative Urine Occult Blood Negative Urine Nitrate Negative Urine Bilirubin Negative Urine Urobilinogen Less than 2 Ur Leukocyte Esterase Negative Urine RBC Less than 1 Urine WBC 2 Micro UA Comment Culture not ind Urine Culture Comments Culture not ind Urine Opiates Screen Neg Ur Barbiturates Screen Neg Ur Amphetamines Screen Neg U Benzodiazepines Scrn Neg Urine Cocaine Screen Neg U Cannabinoids Screen Neg Serum Alcohol Monoscreen 01/30/18 01/31/18 23:30 01:10 WBC RBC Hgb Hct MCV MCH MCHC RDW Plt Count MPV Prelim Diff (Auto) WBC Differential Seg Neuts % (Manual) Lymphocytes % (Manual) Monocytes % (Manual) Abs Neuts (Manual) Differential Comment PT INR APTT Sodium Potassium Chloride Carbon Dioxide Anion Gap BUN Creatinine Estimated GFR Random Glucose Lactic Acid 1.1 Calcium Magnesium Total Bilirubin AST ALT Alkaline Phosphatase Total Creatine Kinase CK-MB (CK-2) CK-MB (CK-2) % Troponin I Total Protein Albumin Lipase TSH Urine Color Urine Clarity Urine pH Ur Specific [place] Urine Protein Urine Glucose (UA) Urine Ketones Urine Occult Blood Urine Nitrate Urine Bilirubin Urine Urobilinogen Ur Leukocyte Esterase Urine RBC Urine WBC Micro UA Comment Urine Culture Comments Urine Opiates Screen Ur Barbiturates Screen Ur Amphetamines Screen U Benzodiazepines Scrn Urine Cocaine Screen U Cannabinoids Screen Serum Alcohol Monoscreen Neg - Imaging Impressions Chest X-Ray 01/30/18 21:07 CONCLUSION: No active disease. Thoracic Spine CT 01/30/18 21:19 CONCLUSION: 1. Unremarkable CT of the thoracic spine. Assessment and Plan - Assessment (1) Neutropenia with fever Code(s): D70.9 - Neutropenia, unspecified; R50.81 - Fever presenting with conditions classified elsewhere Status: Acute - Plan This is a 22-year-old male patient with: Generalized malaise/neutropenia - Unclear etiology. - Patient with absolute neutrophil count of 0.3 with 1.9 WBCs. Will continue to trend. - Will place on neutropenic precautions for now. - CT of the thoracic spine reviewed, no acute fracture or findings. Chest x- ray reviewed showing no acute disease. - Hematology consulted, appreciate assistance, input and recommendations pending. Added HIV, EBS to labs. - UA negative. Toxicology negative. Hepatitis panel negative. TSH negative. Jay negative. - Continue to monitor for infection. Afebrile at this time. - Patient reports taking no medications at home. - Patient states all of his symptoms have resolved since presentation. Transaminitis - AST/ALT elevated. - Hepatitis profile negative. - Continue to monitor. Check labs in a.m. Mild rhabdomyolysis Atypical chest pain suspect secondary to above. Resolved. - EKG reviewed showing sinus bradycardia no ST changes to indicate any ischemia. Controlled heart rate. - Chest pain has resolved at this time. Troponin flat. - Will continue to monitor cardiac telemetry, monitor for any arrhythmias. - Monitor creatinine/BUN. - Will start IV fluid. Encourage p.o. intake and hydration. - Will follow CPK. DVT prophylaxis: SCDs. Ambulation.
[2018-01-31 10:03] LABS: Hepatitis A IgM Antibody Nonreactive (Nonreactive); Hepatitits B Surface Antigen Nonreactive (Nonreactive)
[2018-01-31] MEDS: Sod Chloride 0.9% Inj 1,000 ML IV.CONT SCH (10:25)
[2018-01-31 10:50] LABS: Hematocrit 40.9 % (39.0-51.0); Hemoglobin 13.5 gm/dL (13.0-17.0); Mean Corpuscular HGB Conc 32.9 % (32.0-36.0); Mean Corpuscular Hemoglobin 27.5 pg (27.0-34.0); Mean Corpuscular Volume 83.5 fL (80.0-100.0); Platelet Count 184 th/mm3 (150-450); White Blood Count 1.7 th/mm3 (4.0-11.0)
--- NOTE | 2018-01-31 11:37 | MB ---
cc: Silverio Heredia MD DATE: 01/31/2018 ATTENDING PHYSICIAN: Dr. Ellis REASON FOR CONSULTATION: Hematology consulted to render opinion regarding patient with neutropenia. HISTORY OF PRESENT ILLNESS: The patient is a 22-year-old male with no significant past medical history beginning to experience fleeting chest pain, sternal pain, back pain and abdominal pain on and off for about 1-1/2 months. Last Wednesday, he also had fever and sore throat. He had nausea, vomited twice. He has generalized weakness and fatigue. He came to the hospital and was found to have a white blood cell count of 1.9 with an absolute neutrophil count of 0.3. He has been afebrile since he came to the hospital. He said that his sore throat has now resolved. He denies any chest pressure or palpitation. Denies any shortness of breath or cough. Denies any nausea, vomiting, diarrhea or abdominal pain. No dysuria or hematuria. Denies any bone pain. Denies any headache, focal numbness or weakness. PAST MEDICAL HISTORY: He denies any hypertension or frequent infections. PAST SURGICAL HISTORY: No surgery in the past. FAMILY HISTORY: One brother is healthy. No hematologic disorder in the family. SOCIAL HISTORY: He does not smoke. He drinks occasionally. He worked as a oil painter. He is sexually active with multiple partners. ALLERGIES: NO KNOWN DRUG ALLERGIES. MEDICATIONS: He is not taking outpatient medications. REVIEW OF SYSTEMS: CONSTITUTIONAL: As above. EYES: Negative. ENT: Negative. CARDIOVASCULAR: Denies chest pressure or palpitation. RESPIRATORY: Denies shortness of breath or cough. GASTROINTESTINAL: As above. GENITOURINARY: No dysuria or hematuria. MUSCULOSKELETAL: As above. HEMATOLOGIC: As above. ENDOCRINE: Negative. DERMATOLOGIC: Negative. PSYCHIATRIC: Negative. NEUROLOGIC: Negative. PHYSICAL EXAMINATION: VITAL SIGNS: Temperature 97, blood pressure 126/72, O2 saturation 100% on room air. GENERAL: He is alert, oriented x 3 in no acute distress. HEENT: Atraumatic, normocephalic. Pupils are equal, round, and reactive to light. Extraocular muscles are intact. No scleral icterus. Oropharynx, dry mucosa. No lesion, no thrush or mucositis. NECK: No thyromegaly. No palpable mass. LYMPHATIC: No palpable cervical, clavicular, axillary or inguinal lymph nodes. CARDIOVASCULAR: Regular S1, S2. No murmur. LUNGS: Clear to auscultation bilaterally. No wheezing, or rhonchi. ABDOMEN: Soft, nontender. Could not palpate the liver or spleen. EXTREMITIES: No cyanosis, clubbing or edema. BACK: No paravertebral tenderness. SKIN: No rash or petechiae. NEUROLOGIC: Nonfocal. LABORATORY DATA: WBC 1.8, hemoglobin 14.5, platelet count 204, count is 0.3. ASSESSMENT: 1. Leukopenia with neutropenia. Lymphocyte percent was increased. He has no known history of hematologic disorder. He presented with myalgia. He also had a fever and sore throat last week, but that has resolved. He also was noted to have elevated liver transaminase and creatinine kinase. His toxicology screen was negative. I suspect the neutropenia may be due to a viral illness. We will check HIV, CMV, EBV and hepatitis screen. We will also have pathology review the peripheral smear. If he has persistent neutropenia, we will also do a bone marrow biopsy for further evaluation. 2. Myalgia with fever and sore throat possibly viral illness as above. RECOMMENDATIONS: 1. Pursue laboratory evaluation outlined above. 2. Review peripheral smear. 3. Consider bone marrow biopsy if he has persistent neutropenia. Thank you, Dr. Ellis for asking me to see this patient. MD CURTIS Fischer/MARY , 11:03 AM , 11:35 AM CHET
[2018-01-31 11:53] LABS: Eosinophils 2 % (0-4); Lymphocytes 36 % (9-44); Monocytes 22 % (0-8); Platelet Estimate Normal (Normal); Platelet Morphology Normal (Normal); RBC Morphology Normal (Normal)
--- NOTE | 2018-02-01 09:51 | P.PNONC ---
Subjective Interval history: Afebrile Patient denies pain Denies fever/chills No other acute complaints Objective Vital Signs/Intake & Output: Vital Signs 01/31/18 12:00 01/31/18 16:00 01/31/18 20:03 Temperature 97.9 F 97.8 F 98.5 F Pulse Rate 55 L 62 58 L Respiratory Rate 18 18 18 Blood Pressure 129/66 129/79 127/67 Pulse Oximetry 99 97 100 01/31/18 20:45 02/01/18 00:42 02/01/18 04:51 Temperature 97.2 F L 97.5 F L Pulse Rate 59 L 58 L Respiratory Rate 18 18 Blood Pressure 129/67 129/64 Pulse Oximetry 100 100 100 02/01/18 08:00 Temperature 98.0 F Pulse Rate 75 Respiratory Rate 18 Blood Pressure 128/61 Pulse Oximetry 98 Intake & Output 01/31/18 02/01/18 02/01/18 18:59 06:59 18:59 Intake Total 1200 / 1200 360 / 360 Balance 1200 / 1200 360 / 360 Weight 166 lb 14.239 oz Intake: Oral 1200 / 1200 360 / 360 Other: # Voids 3 2 Date of Last Bowel Movement 01/30/18 # Bowel Movements 0 Result Diagrams: 02/01/18 09:18 02/01/18 09:18 Laboratory Results: Laboratory Results - last 24 hr 01/31/18 01/31/18 01/31/18 08:13 10:28 10:28 WBC 1.7 L RBC 4.90 Hgb 13.5 Hct 40.9 MCV 83.5 MCH 27.5 MCHC 32.9 RDW 14.0 Plt Count 184 MPV 8.0 Prelim Diff (Auto) Manual diff required WBC Differential Manual diff final Seg Neuts % (Manual) 29 Band Neuts % (Manual) 11 H Lymphocytes % (Manual) 36 Monocytes % (Manual) 22 H Eosinophils % (Manual) 2 Abs Neuts (Manual) 0.7 L Differential Comment . Platelet Estimate Normal Platelet Morphology Normal RBC Morphology Normal Lactate Dehydrogenase 285 H Hepatitis A IgM Ab Nonreactive Hep Bs Antigen Nonreactive Hep B Core IgM Ab Nonreactive Hep C IgG Ab Nonreactive Culture Results: Microbiology 01/30/18 23:30 Aerobic Blood Culture - Preliminary Blood - Peripheral No growth in 1 day Anaerobic Blood Culture - Preliminary No growth in 1 day 01/30/18 23:20 Aerobic Blood Culture - Preliminary Blood - Peripheral No growth in 1 day Anaerobic Blood Culture - Preliminary No growth in 1 day Medications: Active Medications Generic Name Dose Route Start Last Admin Trade Name Lionel PRN Reason Stop Dose Admin Sodium Chloride 1,000 mls @ 84 mls/hr 01/31/18 10:25 01/31/18 10:25 Ns Inj IV.CONT 84 mls/hr .[id number] LUIS FELIPE Administration Objective Remarks: GENERAL: Young male sitting up in bed in no obvious distress SKIN: Warm and dry. HEAD: Normocephalic. EYES: No scleral icterus. No injection or drainage. NECK: Supple, trachea midline. No JVD or lymphadenopathy. CARDIOVASCULAR: Regular rate and rhythm without murmurs. RESPIRATORY: Breath sounds equal bilaterally. No accessory muscle use. GASTROINTESTINAL: Abdomen soft, non-tender, nondistended. EXTREMITIES: No cyanosis, or edema. MUSCULOSKELETAL: Adequate muscle tone. NEUROLOGICAL: No obvious focal deficit. Awake, alert, and oriented x3. Assessment/Plan - Plan Patient is a 22-year-old male with no significant past medical history admitted with generalized weakness, fleeting chest pain, back pain and abdominal pain that was present for approximately 4-6 weeks prior to presentation. On admission he was found to have severe leukopenia with neutropenia. His hemoglobin and platelets were normal. He has pending labs including HIV, CMV, EBV and hepatitis. 1. Plan for bone marrow biopsy if patient remains neutropenic on today's CBC. 2. Await HIV, CMV, EBV hepatitis panel results. 3. Supportive care - Attending Statement The exam, history, and the medical decision-making described in the above note were completed with the assistance of the mid-level provider. I reviewed and agree with the findings presented. I attest that I had a [id number] encounter with the patient on the same day, and personally performed and documented my assessment and findings in the medical record. Patient denies any chest pain no back pain. He has no nausea vomiting. White blood cell count remains at 2 and he is still neutropenic. Viral studies still pending. Given his persistent neutropenia will consult radiology for bone marrow biopsy. We will send bone marrow for flow cytometry and cytogenetic study.
[2018-02-01 10:05] LABS: Baso % (Auto) 0.3 % (0.0-2.0); Hematocrit 41.1 % (39.0-51.0); Hemoglobin 13.5 gm/dL (13.0-17.0); Lymph # (Auto) 0.9 th/mm3 (1.0-4.8); Lymph % (Auto) 47.9 % (9.0-44.0); Mean Corpuscular HGB Conc 32.8 % (32.0-36.0); Mean Corpuscular Hemoglobin 27.3 pg (27.0-34.0); Mean Corpuscular Volume 83.1 fL (80.0-100.0); Mean Platelet Volume 8.4 fL (7.0-11.0); Mono # (Auto) 0.4 th/mm3 (0.0-0.9); Mono % (Auto) 22.6 % (0.0-8.0); Neut # (Auto) 0.6 th/mm3 (1.8-7.7); Neut % (Auto) 28.2 % (16.0-70.0); Platelet Count 203 th/mm3 (150-450); Red Blood Count 4.94 mil/mm3 (4.50-5.90); Red Cell Distribution Width 13.7 % (11.6-17.2)
[2018-02-01 10:18] LABS: Alanine Aminotransferase 106 U/L (12-78); Albumin 2.9 g/dL (3.4-5.0); Anion Gap 9 meq/L (5-15); Aspartate Aminotransferase 88 U/L (15-37); Blood Urea Nitrogen 9 mg/dL (7-18); Carbon Dioxide 24.3 meq/L (21.0-32.0); Chloride 110 meq/L (98-107); Glomerular Filtration Rate Greater Than 89 mL/min (>89); Glucose,Random 69 mg/dL (74-106); Sodium 143 meq/L (136-145)
[2018-02-01 10:21] LABS: Alkaline Phosphatase 90 U/L (45-117); Creatine Kinase 176 U/L (39-308); Total Protein 7.8 g/dL (6.4-8.2)
[2018-02-01 11:02] LABS: Lymphocytes 47 % (9-44); Monocytes 22 % (0-8); Plasma Cells 2 % (0-0)
[2018-02-01 11:04] LABS: Acanthocytes Occ; Platelet Estimate Normal (Normal); Platelet Morphology Normal (Normal)
[2018-02-01] MEDS: Sod Chloride 0.9% Inj 1,000 ML IV.CONT SCH ×2 (11:43→18:03)
--- NOTE | 2018-02-01 12:27 | P.PN ---
Subjective Interval history: Follow-up visit generalized malaise, neutropenia, transaminitis. Patient seen and examined today. Reports he is doing well. States has been eating good. Denies pain and discomfort. Denies SOB/ dyspnea. Denies chest pain, palpitations, headaches, dizziness. Denies fevers, chills, n/v/d. Denies dysuria. Physical Exam Vital signs: Vital Signs 01/31/18 16:00 01/31/18 20:03 01/31/18 20:45 Temperature 97.8 F 98.5 F Pulse Rate 62 58 L Respiratory Rate 18 18 Blood Pressure 129/79 127/67 Pulse Oximetry 97 100 100 02/01/18 00:42 02/01/18 04:51 02/01/18 08:00 Temperature 97.2 F L 97.5 F L 98.0 F Pulse Rate 59 L 58 L 75 Respiratory Rate 18 18 18 Blood Pressure 129/67 129/64 128/61 Pulse Oximetry 100 100 98 02/01/18 12:00 Temperature 97.9 F Pulse Rate 65 Respiratory Rate 18 Blood Pressure 135/65 Pulse Oximetry 99 Intake & Output 01/31/18 02/01/18 02/01/18 18:59 06:59 18:59 Intake Total 1200 / 1200 1360 / 1360 Balance 1200 / 1200 1360 / 1360 Weight 75.7 kg Intake: IV 1000 / 1000 NS Inj 1,000 ML @ 84 mls/hr IV. 1000 / 1000 CONT .[id number] LUIS FELIPE Rx#:[id number] Oral 1200 / 1200 360 / 360 Other: # Voids 3 2 Date of Last Bowel Movement 01/30/18 # Bowel Movements 0 Narrative: GENERAL: This is a well-nourished, well-developed patient, in no apparent distress. SKIN: Warm and dry. HEENT: Normocephalic. Pupils equal round and reactive. Nose without bleeding. Airway patent. NECK: Trachea midline. CARDIOVASCULAR: Regular rate and rhythm without murmurs, gallops, or rubs. RESPIRATORY: Clear to auscultation. Breath sounds equal bilaterally. No wheezes , rales, or rhonchi. GASTROINTESTINAL: Abdomen soft, non-tender, nondistended. Bowel Sounds normoactive x4. MUSCULOSKELETAL: Extremities without clubbing, cyanosis, or edema. NEUROLOGICAL: Awake and alert. Oriented to time, place, person. No focal neuro deficit. Moves all extremities. Normal speech. Results - Labs CBC & Chem 7: 02/01/18 09:18 02/01/18 09:18 Laboratory Results - last 24 hr 02/01/18 02/01/18 09:18 09:18 WBC 2.0 L RBC 4.94 Hgb 13.5 Hct 41.1 MCV 83.1 MCH 27.3 MCHC 32.8 RDW 13.7 Plt Count 203 MPV 8.4 Prelim Diff (Auto) Slide review pending Neut % (Auto) 28.2 Lymph % (Auto) 47.9 H [place] % (Auto) 22.6 H Eos % (Auto) 1.0 Baso % (Auto) 0.3 Neut # (Auto) 0.6 L Lymph # (Auto) 0.9 L [place] # (Auto) 0.4 Eos # (Auto) 0.0 Baso # (Auto) 0.0 WBC Differential Manual diff final Seg Neuts % (Manual) 24 Band Neuts % (Manual) 5 Lymphocytes % (Manual) 47 H Monocytes % (Manual) 22 H Plasma Cell % (Manual) 2 H Abs Neuts (Manual) 0.6 L Differential Comment . Platelet Estimate Normal Platelet Morphology Normal Acanthocytes (Spur) Occ H Sodium 143 Potassium 4.0 Chloride 110 H Carbon Dioxide 24.3 Anion Gap 9 BUN 9 Creatinine 0.96 Estimated GFR Greater than 89 Random Glucose 69 L Calcium 9.0 Total Bilirubin 0.3 AST 88 H ALT 106 H Alkaline Phosphatase 90 Total Creatine Kinase 176 Total Protein 7.8 D Albumin 2.9 L Microbiology 01/30/18 23:30 Blood - Peripheral Aerobic Blood Culture - Preliminary No growth in 2 days 01/30/18 23:30 Blood - Peripheral Anaerobic Blood Culture - Preliminary No growth in 2 days 01/30/18 23:20 Blood - Peripheral Aerobic Blood Culture - Preliminary No growth in 2 days 01/30/18 23:20 Blood - Peripheral Anaerobic Blood Culture - Preliminary No growth in 2 days Assessment and Plan - Assessment (1) Neutropenia with fever Code(s): D70.9 - Neutropenia, unspecified; R50.81 - Fever presenting with conditions classified elsewhere Status: Acute - Plan 22-year-old male with no significant past medical history presents the emergency department for the evaluation of chest, abdominal and back pain for the past 1.5 months Generalized malaise/neutropenia -Unclear etiology. -Patient with absolute neutrophil count of 0.3 with 1.9 WBCs. Will continue to trend. -on neutropenic precautions for now. -CT of the thoracic spine reviewed, no acute fracture or findings. Chest x- ray reviewed showing no acute disease. -Hematology consulted, appreciate assistance, input and recommendations pending. Added HIV, EBV, CMV - pending -UA negative. Toxicology negative. Hepatitis panel negative. TSH negative. [place] screen negative. -Continue to monitor for infection. Afebrile at this time. -Patient reports taking no medications at home. -Patient states all of his symptoms have resolved since presentation. Transaminitis -AST/ALT elevated, slowly trending -Hepatitis profile negative. -Continue to monitor. -States he drinks alcohol only on the weekend. About 6 coronas. Mild rhabdomyolysis Atypical chest pain suspect secondary to above. Resolved. -EKG reviewed showing sinus bradycardia no ST changes to indicate any ischemia. Controlled heart rate. -Chest pain has resolved at this time. Troponin flat. -Will continue to monitor cardiac telemetry, monitor for any arrhythmias. -Monitor creatinine/BUN. -On IV fluid. Encourage p.o. intake and hydration. -CPK improved. Will DC IVF DVT prophylaxis: SCDs. Ambulation. Code Status: Full Code Discussed Condition With: Patient, nursing Discharge Planning: Home when clinically improved. Bone marrow biopsy
[2018-02-02] MEDS: Sod Chloride 0.9% Inj 1,000 ML IV.CONT SCH ×3 (08:02→21:31)
--- NOTE | 2018-02-02 08:14 | P.PN ---
Subjective Interval history: Follow-up visit generalized malaise, neutropenia, transaminitis. Patient seen and examined today. Reports he is doing well. No acute issues overnight. Denies pain and discomfort. Denies SOB/ dyspnea. Denies chest pain, palpitations, headaches, dizziness. Denies fevers, chills, n/v/d. Denies dysuria. Plan for bone marrow biopsy Physical Exam Vital signs: Vital Signs 02/01/18 12:00 02/01/18 16:00 02/01/18 20:00 Temperature 97.9 F 98.1 F 97.9 F Pulse Rate 65 58 L 57 L Respiratory Rate 18 17 17 Blood Pressure 135/65 131/73 123/57 L Pulse Oximetry 99 99 99 02/01/18 20:55 02/02/18 00:00 02/02/18 04:00 Temperature 98.3 F 97.5 F L Pulse Rate 66 60 Respiratory Rate 17 17 Blood Pressure 126/66 126/57 L Pulse Oximetry 99 100 99 Intake & Output 02/01/18 02/02/18 02/02/18 18:59 06:59 18:59 Intake Total 1600 / 1600 1000 / 1000 Balance 1600 / 1600 1000 / 1000 Weight 75 kg Intake: IV 1000 / 1000 1000 / 1000 NS Inj 1,000 ML @ 84 mls/hr IV. 1000 / 1000 1000 / 1000 CONT .[id number] LUIS FELIPE Rx#:[id number] Oral 600 / 600 Other: # Voids 3 2 Date of Last Bowel Movement 01/30/18 Narrative: GENERAL: This is a well-nourished, well-developed patient, in no apparent distress. SKIN: Warm and dry. HEENT: Normocephalic. Pupils equal round and reactive. Nose without bleeding. Airway patent. NECK: Trachea midline. CARDIOVASCULAR: Regular rate and rhythm without murmurs, gallops, or rubs. RESPIRATORY: Clear to auscultation. Breath sounds equal bilaterally. No wheezes , rales, or rhonchi. GASTROINTESTINAL: Abdomen soft, non-tender, nondistended. Bowel Sounds normoactive x4. MUSCULOSKELETAL: Extremities without clubbing, cyanosis, or edema. NEUROLOGICAL: Awake and alert. Oriented to time, place, person. No focal neuro deficit. Moves all extremities. Normal speech. Results - Labs CBC & Chem 7: 02/02/18 07:45 02/02/18 07:45 Laboratory Results - last 24 hr 01/31/18 02/01/18 02/01/18 10:28 09:18 09:18 WBC 2.0 L RBC 4.94 Hgb 13.5 Hct 41.1 MCV 83.1 MCH 27.3 MCHC 32.8 RDW 13.7 Plt Count 203 MPV 8.4 Prelim Diff (Auto) Slide review pending Neut % (Auto) 28.2 Lymph % (Auto) 47.9 H [place] % (Auto) 22.6 H Eos % (Auto) 1.0 Baso % (Auto) 0.3 Neut # (Auto) 0.6 L Lymph # (Auto) 0.9 L [place] # (Auto) 0.4 Eos # (Auto) 0.0 Baso # (Auto) 0.0 WBC Differential Manual diff final Seg Neuts % (Manual) 24 Band Neuts % (Manual) 5 Lymphocytes % (Manual) 47 H Monocytes % (Manual) 22 H Plasma Cell % (Manual) 2 H Abs Neuts (Manual) 0.6 L Differential Comment . Platelet Estimate Normal Platelet Morphology Normal Acanthocytes (Spur) Occ H Sodium 143 Potassium 4.0 Chloride 110 H Carbon Dioxide 24.3 Anion Gap 9 BUN 9 Creatinine 0.96 Estimated GFR Greater than 89 Random Glucose 69 L Calcium 9.0 Total Bilirubin 0.3 AST 88 H ALT 106 H Alkaline Phosphatase 90 Total Creatine Kinase 176 Total Protein 7.8 D Albumin 2.9 L CMV Qnt PCR IU/mL Undetected Microbiology 01/30/18 23:30 Blood - Peripheral Aerobic Blood Culture - Preliminary No growth in 2 days 01/30/18 23:30 Blood - Peripheral Anaerobic Blood Culture - Preliminary No growth in 2 days 01/30/18 23:20 Blood - Peripheral Aerobic Blood Culture - Preliminary No growth in 2 days 01/30/18 23:20 Blood - Peripheral Anaerobic Blood Culture - Preliminary No growth in 2 days Assessment and Plan - Assessment (1) Neutropenia with fever Code(s): D70.9 - Neutropenia, unspecified; R50.81 - Fever presenting with conditions classified elsewhere Status: Acute - Plan 22-year-old male with no significant past medical history presents the emergency department for the evaluation of chest, abdominal and back pain for the past 1.5 months Generalized malaise/neutropenia -Unclear etiology. -Patient with absolute neutrophil count of 0.3 with 1.9 WBCs. Will continue to trend. -on neutropenic precautions for now. -CT of the thoracic spine reviewed, no acute fracture or findings. Chest x- ray reviewed showing no acute disease. -Hematology consulted, appreciate assistance, input and recommendations pending. Added HIV, EBV, CMV - pending -UA negative. Toxicology negative. Hepatitis panel negative. TSH negative. [place] screen negative. -Continue to monitor for infection. Afebrile at this time. -Patient reports taking no medications at home. -Patient states all of his symptoms have resolved since presentation. -Plan for Bone marrow biopsy today Transaminitis -AST/ALT elevated, slowly trending down -Hepatitis profile negative. -States he drinks alcohol only on the weekend. About 6 coronas. -Monitor trend LFTs Mild rhabdomyolysis Atypical chest pain suspect secondary to above. Resolved. -EKG reviewed showing sinus bradycardia no ST changes to indicate any ischemia. Controlled heart rate. -Chest pain has resolved at this time. Troponin flat. -Will continue to monitor cardiac telemetry, monitor for any arrhythmias. -Monitor creatinine/BUN. -On IV fluid. Encourage p.o. intake and hydration. -CPK improved. Will DC IVF DVT prophylaxis: SCDs. Ambulation. Code Status: Full Code Discussed Condition With: Patient, nursing Discharge Planning: Home when clinically improved. Bone marrow biopsy today.
[2018-02-02 08:24] LABS: Baso % (Auto) 0.3 % (0.0-2.0); Eos % (Auto) 1.6 % (0.0-4.0); Hematocrit 43.8 % (39.0-51.0); Hemoglobin 14.4 gm/dL (13.0-17.0); Lymph % (Auto) 40.1 % (9.0-44.0); Mean Corpuscular HGB Conc 32.9 % (32.0-36.0); Mean Corpuscular Hemoglobin 27.6 pg (27.0-34.0); Mean Corpuscular Volume 83.9 fL (80.0-100.0); Mean Platelet Volume 8.4 fL (7.0-11.0); Mono # (Auto) 0.4 th/mm3 (0.0-0.9); Mono % (Auto) 17.6 % (0.0-8.0); Neut % (Auto) 40.4 % (16.0-70.0); Platelet Count 212 th/mm3 (150-450); Red Blood Count 5.23 mil/mm3 (4.50-5.90); Red Cell Distribution Width 13.7 % (11.6-17.2); White Blood Count 2.4 th/mm3 (4.0-11.0)
[2018-02-02 08:55] LABS: Blood Urea Nitrogen 8 mg/dL (7-18); Calcium 8.6 mg/dL (8.5-10.1); Carbon Dioxide 29.1 meq/L (21.0-32.0); Glomerular Filtration Rate Greater Than 89 mL/min (>89); Glucose,Random 75 mg/dL (74-106)
[2018-02-02 09:18] LABS: Anion Gap 5 meq/L (5-15); Chloride 110 meq/L (98-107); Potassium 4.3 meq/L (3.5-5.1); Sodium 144 meq/L (136-145)
[2018-02-02 09:29] LABS: Eosinophils 2 % (0-4); Lymphocytes 39 % (9-44); Monocytes 10 % (0-8); Platelet Estimate Normal (Normal); Platelet Morphology Normal (Normal)
[2018-02-02] MEDS ORDERED: fentaNYL Citrate Inj 250 MCG/5 ML Ampul ONE (14:48)
--- NOTE | 2018-02-02 16:19 | P.RAD ---
Post CT Procedure Prog Note - Pre Procedure Diagnosis (1) Neutropenia with fever - Post Procedure Diagnosis (1) Neutropenia with fever - Procedure Information Supervising Radiologist: Marek Hathaway MD Anesthesia: Local, Conscious Sedation - Plan of Activity Patient to Unit: Nursing Unit Patient condition: Good See PACS Report for procedural detail/treatment. Biopsy CT left Bone Marrow Specimen: Core Biopsy, Fine Needle Aspirate Treatment Area: Left iliac bone
--- NOTE | 2018-02-02 17:15 | P.DIET ---
Nutritional Evaluation Type of nutrition evaluation: initial Nutrition screening: Weight Loss > 10 lbs Subjective Subjective Comments: Pt gone for procedure when visit attempted Objective - Diagnosis Neutropenia with Fever - Objective % IBW: 117 (IBW: 142-lb) Body Weight Used for Calculations: Actual Energy Needs - Lower Range (kCal/kg): 25 Energy Needs - Upper Range (kCal/kg): 30 Lower Limit kCal/kg (kCals): 1,893 Upper Limit kCal/kg (kCals): 2,271 Lower Limit Protein Factor (Grams per Kg): 1.1 Upper Limit Protein Factor (Grams per Kg): 1.4 Lower Protein Needs (Protein): 83 Upper Protein Needs (Protein): 106 Dietitian Reviewed in Medical Record: Current diet, Curent medications, Intake & Output, Labs, Medical history Diet Order: NPO Oral Diet Intake Amount: Good 75-90% Objective Comments: No Significant Medical History Assessment Assessment: Pt is at nutritional risk r/t reported recent unintentional wt loss. Adequate po intake for meal here, prior to NPO. Send Ensure oral nutritional supplement w /meals for additional nutrition. Labs reviewed. Dietitian will follow. Recommendations: 1. Send Ensure oral nutritional supplement w/meals for additional nutrition 2. Dietitian will follow Dietitian to Monitor: Lab values, Supplement acceptance, Intake & Output, Weight change, PO Intake
--- NOTE | 2018-02-02 17:34 | P.PNONC ---
Subjective Interval history: Patient denies any chest pain or back pain. He denies any nausea or vomiting. He is waiting to have bone marrow biopsy today. He remains afebrile. Objective Vital Signs/Intake & Output: Vital Signs 02/01/18 20:00 02/01/18 20:55 02/02/18 00:00 Temperature 97.9 F 98.3 F Pulse Rate 57 L 66 Respiratory Rate 17 17 Blood Pressure 123/57 L 126/66 Pulse Oximetry 99 99 100 02/02/18 04:00 02/02/18 08:00 02/02/18 12:00 Temperature 97.5 F L 97.1 F L 96.8 F L Pulse Rate 60 70 77 Respiratory Rate 17 18 18 Blood Pressure 126/57 L 120/69 120/72 Pulse Oximetry 99 99 99 02/02/18 13:59 02/02/18 16:30 02/02/18 16:45 Temperature 98.4 F Pulse Rate 62 50 L Respiratory Rate 20 20 Blood Pressure 115/63 124/70 Pulse Oximetry 99 96 94 L Intake & Output 02/01/18 02/02/18 02/02/18 18:59 06:59 18:59 Intake Total 1600 / 1600 1000 / 1000 Balance 1600 / 1600 1000 / 1000 Weight 75 kg Intake: IV 1000 / 1000 1000 / 1000 NS Inj 1,000 ML @ 84 mls/hr IV. 1000 / 1000 1000 / 1000 CONT .[id number] [facility] Rx#:[id number] Oral 600 / 600 Other: # Voids 3 2 Date of Last Bowel Movement 01/30/18 Result Diagrams: 02/02/18 07:45 02/02/18 07:45 Laboratory Results: Laboratory Results - last 24 hr 01/31/18 02/02/18 02/02/18 10:28 07:45 07:45 WBC 2.4 L RBC 5.23 Hgb 14.4 Hct 43.8 MCV 83.9 MCH 27.6 MCHC 32.9 RDW 13.7 Plt Count 212 MPV 8.4 Prelim Diff (Auto) Slide review pending Neut % (Auto) 40.4 Lymph % (Auto) 40.1 [place] % (Auto) 17.6 H Eos % (Auto) 1.6 Baso % (Auto) 0.3 Neut # (Auto) 1.0 L Lymph # (Auto) 1.0 [place] # (Auto) 0.4 Eos # (Auto) 0.0 Baso # (Auto) 0.0 WBC Differential Manual diff final Seg Neuts % (Manual) 43 Band Neuts % (Manual) 6 Lymphocytes % (Manual) 39 Monocytes % (Manual) 10 H Eosinophils % (Manual) 2 Abs Neuts (Manual) 1.2 L Differential Comment . Platelet Estimate Normal Platelet Morphology Normal Sodium 144 Potassium 4.3 Chloride 110 H Carbon Dioxide 29.1 Anion Gap 5 BUN 8 Creatinine 0.89 Estimated GFR Greater than 89 Random Glucose 75 Calcium 8.6 EBV (Quant-PCR) Quant Undetected Culture Results: Microbiology 01/30/18 23:30 Aerobic Blood Culture - Preliminary Blood - Peripheral No growth in 3 days Anaerobic Blood Culture - Preliminary No growth in 3 days 01/30/18 23:20 Aerobic Blood Culture - Preliminary Blood - Peripheral No growth in 3 days Anaerobic Blood Culture - Preliminary No growth in 3 days Medications: Active Medications Generic Name Dose Route Start Last Admin Trade Name Freq PRN Reason Stop Dose Admin Sodium Chloride 1,000 mls @ 84 mls/hr 01/31/18 10:25 02/02/18 08:02 Ns Inj IV.CONT 84 mls/hr .[id number] LUIS FELIPE Administration Objective Remarks: GENERAL: Well-nourished, well-developed patient. SKIN: Warm and dry. HEAD: Normocephalic. EYES: No scleral icterus. No injection or drainage. NECK: Supple, trachea midline. No JVD or lymphadenopathy. LYMPHATIC: No adenopathy. CARDIOVASCULAR: Regular rate and rhythm without murmurs. RESPIRATORY: Breath sounds equal bilaterally. No accessory muscle use. GASTROINTESTINAL: Abdomen soft, non-tender, nondistended. EXTREMITIES: No cyanosis, or edema. MUSCULOSKELETAL: Adequate muscle tone. NEUROLOGICAL: No obvious focal deficit. Awake, alert, and oriented x3. PSYCHIATRIC: Appropriate mood and affect; insight and judgment normal. Assessment/Plan (1) Neutropenia with fever Code(s): D70.9 - Neutropenia, unspecified; R50.81 - Fever presenting with conditions classified elsewhere Status: Acute - Plan Patient is a 22-year-old male with no significant past medical history admitted with generalized weakness, fleeting chest pain, back pain and abdominal pain that was present for approximately 4-6 weeks prior to presentation. On admission he was found to have severe leukopenia with neutropenia. His hemoglobin and platelets were normal. He has pending labs including HIV, CMV, EBV and hepatitis. 02/02/18 WBC trended up to 2.4 with ANC of 1.2. 1. Plan for bone marrow biopsy today. 2. Await HIV, CMV, EBV panel results. 3. Supportive care 4. Can be discharged if WBC continues to trend up.
[2018-02-02 19:18] LABS: Iron Stain Bone Marrow Done
[2018-02-03 06:58] LABS: Baso % (Auto) 0.2 % (0.0-2.0); Eos % (Auto) 1.6 % (0.0-4.0); Hematocrit 41.1 % (39.0-51.0); Hemoglobin 13.6 gm/dL (13.0-17.0); Lymph # (Auto) 0.9 th/mm3 (1.0-4.8); Lymph % (Auto) 43.4 % (9.0-44.0); Mean Corpuscular HGB Conc 33.2 % (32.0-36.0); Mean Corpuscular Hemoglobin 27.4 pg (27.0-34.0); Mean Corpuscular Volume 82.7 fL (80.0-100.0); Mean Platelet Volume 8.6 fL (7.0-11.0); Mono # (Auto) 0.5 th/mm3 (0.0-0.9); Mono % (Auto) 23.9 % (0.0-8.0); Neut # (Auto) 0.6 th/mm3 (1.8-7.7); Neut % (Auto) 30.9 % (16.0-70.0); Platelet Count 204 th/mm3 (150-450); Red Blood Count 4.97 mil/mm3 (4.50-5.90); Red Cell Distribution Width 13.8 % (11.6-17.2); White Blood Count 2.1 th/mm3 (4.0-11.0)
--- NOTE | 2018-02-03 07:51 | P.PNONC ---
Subjective Interval history: Patient tolerated bone marrow biopsy yesterday. He denies any back pain he denies any nausea or vomiting. He denies any chest pain or shortness of breath. He wants to go home. He remains afebrile. Objective Vital Signs/Intake & Output: Vital Signs 02/02/18 08:00 02/02/18 12:00 02/02/18 13:59 Temperature 97.1 F L 96.8 F L Pulse Rate 70 77 Respiratory Rate 18 18 Blood Pressure 120/69 120/72 Pulse Oximetry 99 99 99 02/02/18 16:30 02/02/18 16:45 02/02/18 17:46 Temperature 98.4 F 97.1 F L Pulse Rate 62 50 L 54 L Respiratory Rate 20 20 18 Blood Pressure 115/63 124/70 127/69 Pulse Oximetry 96 94 L 99 02/02/18 20:00 02/02/18 20:28 02/03/18 00:00 Temperature 97.2 F L 97.3 F L Pulse Rate 62 55 L 61 Respiratory Rate 16 16 Blood Pressure 129/72 132/61 Pulse Oximetry 99 99 02/03/18 00:19 02/03/18 04:00 Temperature 97.6 F Pulse Rate 56 L 66 Respiratory Rate 16 Blood Pressure 133/63 Pulse Oximetry 100 Intake & Output 02/02/18 02/03/18 02/03/18 18:59 06:59 18:59 Intake Total 1999 Balance 1999 Intake: IV 1999 NS Inj 1,000 ML @ 84 mls/hr IV. 1999 CONT .[id number] [facility] Rx#:[id number] Other: # Voids 4 Date of Last Bowel Movement 01/31/18 Result Diagrams: 02/03/18 05:26 02/02/18 07:45 Laboratory Results: Laboratory Results - last 24 hr 01/31/18 02/02/18 02/02/18 10:28 07:45 07:45 WBC 2.4 L RBC 5.23 Hgb 14.4 Hct 43.8 MCV 83.9 MCH 27.6 MCHC 32.9 RDW 13.7 Plt Count 212 MPV 8.4 Prelim Diff (Auto) Slide review pending Neut % (Auto) 40.4 Lymph % (Auto) 40.1 [place] % (Auto) 17.6 H Eos % (Auto) 1.6 Baso % (Auto) 0.3 Neut # (Auto) 1.0 L Lymph # (Auto) 1.0 [place] # (Auto) 0.4 Eos # (Auto) 0.0 Baso # (Auto) 0.0 WBC Differential Manual diff final Seg Neuts % (Manual) 43 Band Neuts % (Manual) 6 Lymphocytes % (Manual) 39 Monocytes % (Manual) 10 H Eosinophils % (Manual) 2 Abs Neuts (Manual) 1.2 L Differential Comment . Platelet Estimate Normal Platelet Morphology Normal Sodium 144 Potassium 4.3 Chloride 110 H Carbon Dioxide 29.1 Anion Gap 5 BUN 8 Creatinine 0.89 Estimated GFR Greater than 89 Random Glucose 75 Calcium 8.6 EBV (Quant-PCR) Quant Undetected 02/03/18 05:26 WBC 2.1 L RBC 4.97 Hgb 13.6 Hct 41.1 MCV 82.7 MCH 27.4 MCHC 33.2 RDW 13.8 Plt Count 204 MPV 8.6 Prelim Diff (Auto) Slide review pending Neut % (Auto) 30.9 Lymph % (Auto) 43.4 [place] % (Auto) 23.9 H Eos % (Auto) 1.6 Baso % (Auto) 0.2 Neut # (Auto) 0.6 L Lymph # (Auto) 0.9 L [place] # (Auto) 0.5 Eos # (Auto) 0.0 Baso # (Auto) 0.0 WBC Differential Seg Neuts % (Manual) Band Neuts % (Manual) Lymphocytes % (Manual) Monocytes % (Manual) Eosinophils % (Manual) Abs Neuts (Manual) Differential Comment . Platelet Estimate Platelet Morphology Sodium Potassium Chloride Carbon Dioxide Anion Gap BUN Creatinine Estimated GFR Random Glucose Calcium EBV (Quant-PCR) Quant Culture Results: Microbiology 01/30/18 23:30 Aerobic Blood Culture - Preliminary Blood - Peripheral No growth in 3 days Anaerobic Blood Culture - Preliminary No growth in 3 days 01/30/18 23:20 Aerobic Blood Culture - Preliminary Blood - Peripheral No growth in 3 days Anaerobic Blood Culture - Preliminary No growth in 3 days Medications: Active Medications Generic Name Dose Route Start Last Admin Trade Name Freq PRN Reason Stop Dose Admin Sodium Chloride 1,000 mls @ 84 mls/hr 01/31/18 10:25 02/02/18 21:31 Ns Inj IV.CONT 84 mls/hr .[id number] LUIS FELIPE Administration Objective Remarks: GENERAL: Well-nourished, well-developed patient. SKIN: Warm and dry. Bone marrow biopsy site has no hematoma or bleeding. HEAD: Normocephalic. EYES: No scleral icterus. No injection or drainage. NECK: Supple, trachea midline. No JVD or lymphadenopathy. LYMPHATIC: No adenopathy. CARDIOVASCULAR: Regular rate and rhythm without murmurs. RESPIRATORY: Breath sounds equal bilaterally. No accessory muscle use. GASTROINTESTINAL: Abdomen soft, non-tender, nondistended. EXTREMITIES: No cyanosis, or edema. MUSCULOSKELETAL: Adequate muscle tone. NEUROLOGICAL: No obvious focal deficit. Awake, alert, and oriented x3. PSYCHIATRIC: Appropriate mood and affect; insight and judgment normal. Assessment/Plan (1) Neutropenia with fever Code(s): D70.9 - Neutropenia, unspecified; R50.81 - Fever presenting with conditions classified elsewhere Status: Acute - Plan Patient is a 22-year-old male with no significant past medical history admitted with generalized weakness, fleeting chest pain, back pain and abdominal pain that was present for approximately 4-6 weeks prior to presentation. On admission he was found to have severe leukopenia with neutropenia. His hemoglobin and platelets were normal. He has pending labs including HIV. CMV, EBV and hepatitis were negative. 02/02/18 WBC trended up to 2.4 with ANC of 1.2. 02/03/18 WBC stable at 2.1. Differential count pending. 1. Have bone marrow biopsy February 02, 2018. Pathology pending. 2. Can be discharged if able to arrange for outpatient hematology follow-up in 1 week.
--- NOTE | 2018-02-03 08:28 | P.DS ---
Date of admission: 01/30/18 23:18 Primary care physician: No Primary Care Physician Attending physician on discharge: Abdirahman Gu Anticipated date of discharge: 02/03/18 Brief History from admission: 22-year-old male with no significant past medical history presents the emergency department for the evaluation of multiple complaints. The patient reports he has had chest, abdominal and back pain for the past 1.5 months. He also reports that he had a sore throat and a fever that started on Wednesday with accompanying emesis 2. The patient does not have any known sick contacts. DS: Diagnosis - Discharge Diagnosis (1) Neutropenia with fever Status: Acute DS: Summary Hospital Course: Patient is a 22-year-old male with no significant past medical history who presents to the emergency department for evaluation of chest, abdominal and back pain for the past 1 and half months. His general malaise and neutropenia with fever is unclear etiology. Initially when patient came in he has an absolute neutrophil count of 0.3 with WBC count 1.9. CT of thoracic and spine with no acute fracture findings. His chest x-ray showed no acute illness. His UA is negative. His toxicology is also negative. His hepatitis panel is negative. TSH was negative. And his mono screen was negative. Hematology was consulted and appreciate their assistance. He has a pending HIV, EBV and CMV studies that he would need to follow-up with [facility] in the outpatient setting. He has transaminitis that has been slowly trending down. States he only drinks alcohol on the weekend about 6 coronas not really a big drinker. Patient came in with mild rhabdomyolysis wearing his CK has improved after IV fluids. His chest pain is resolved at this time. His EKG only showed sinus bradycardia with no ST changes to indicate any ischemia. Patient did a bone marrow biopsy yesterday. Results of the biopsy will be followed up in the outpatient setting with a [facility] Dr. Heredia. This is extensively discussed with patient including following with [facility] for primary care. He verbalized understanding. Patient has met maximal benefits of hospitalization. Clinically stable for discharge. - Time Spent with Patient Total time spent providing and/or coordinating discharge services: Less than 30 minutes - Quality: VTE Deep Vein Thrombosis/Pulmonary Embolism Present on Admission: No Exam Vital signs: Vital Signs 02/02/18 12:00 02/02/18 13:59 02/02/18 16:30 Temperature 96.8 F L 98.4 F Pulse Rate 77 62 Respiratory Rate 18 20 Blood Pressure 120/72 115/63 Pulse Oximetry 99 99 96 02/02/18 16:45 02/02/18 17:46 02/02/18 20:00 Temperature 97.1 F L 97.2 F L Pulse Rate 50 L 54 L 62 Respiratory Rate 20 18 16 Blood Pressure 124/70 127/69 129/72 Pulse Oximetry 94 L 99 99 02/02/18 20:28 02/03/18 00:00 02/03/18 00:19 Temperature 97.3 F L Pulse Rate 55 L 61 56 L Respiratory Rate 16 Blood Pressure 132/61 Pulse Oximetry 99 02/03/18 04:00 Temperature 97.6 F Pulse Rate 66 Respiratory Rate 16 Blood Pressure 133/63 Pulse Oximetry 100 Intake & Output 02/02/18 02/03/18 02/03/18 18:59 06:59 18:59 Intake Total 1999 Balance 1999 Intake: IV 1999 NS Inj 1,000 ML @ 84 mls/hr IV. 1999 CONT .[id number] [facility] Rx#:[id number] Other: # Voids 4 Date of Last Bowel Movement 01/31/18 Narrative: GENERAL: This is a well-nourished, well-developed patient, in no apparent distress. SKIN: Warm and dry. HEENT: Normocephalic. Pupils equal round and reactive. Nose without bleeding. Airway patent. NECK: Trachea midline. CARDIOVASCULAR: Regular rate and rhythm without murmurs, gallops, or rubs. RESPIRATORY: Clear to auscultation. Breath sounds equal bilaterally. No wheezes , rales, or rhonchi. GASTROINTESTINAL: Abdomen soft, non-tender, nondistended. Bowel Sounds normoactive x4. MUSCULOSKELETAL: Extremities without clubbing, cyanosis, or edema. NEUROLOGICAL: Awake and alert. Oriented to time, place, person. No focal neuro deficit. Moves all extremities. Normal speech. Results Procedures completed during hospitalization: Bone marrow biopsy, 02/02/18 Pending studies at discharge: HIV, EBV, CMV Labs on day of discharge: Labs from last 24 hours 02/03/18 02/02/18 02/02/18 05:26 15:40 07:45 WBC 2.1 L RBC 4.97 Hgb 13.6 Hct 41.1 MCV 82.7 MCH 27.4 MCHC 33.2 RDW 13.8 Plt Count 204 MPV 8.6 Prelim Diff (Auto) Slide review pending Neut % (Auto) 30.9 Lymph % (Auto) 43.4 [place] % (Auto) 23.9 H Eos % (Auto) 1.6 Baso % (Auto) 0.2 Neut # (Auto) 0.6 L Lymph # (Auto) 0.9 L [place] # (Auto) 0.5 Eos # (Auto) 0.0 Baso # (Auto) 0.0 WBC Differential Pending Seg Neuts % (Manual) Band Neuts % (Manual) Lymphocytes % (Manual) Monocytes % (Manual) Eosinophils % (Manual) Abs Neuts (Manual) Differential Comment . Platelet Estimate Platelet Morphology Sodium 144 Potassium 4.3 Chloride 110 H Carbon Dioxide 29.1 Anion Gap 5 BUN 8 Creatinine 0.89 Estimated GFR Greater than 89 Random Glucose 75 Calcium 8.6 Marrow Immunophenotype Pending EBV (Quant-PCR) Quant BM Chromosome Interp Pending 02/02/18 01/31/18 07:45 10:28 WBC 2.4 L RBC 5.23 Hgb 14.4 Hct 43.8 MCV 83.9 MCH 27.6 MCHC 32.9 RDW 13.7 Plt Count 212 MPV 8.4 Prelim Diff (Auto) Slide review pending Neut % (Auto) 40.4 Lymph % (Auto) 40.1 [place] % (Auto) 17.6 H Eos % (Auto) 1.6 Baso % (Auto) 0.3 Neut # (Auto) 1.0 L Lymph # (Auto) 1.0 [place] # (Auto) 0.4 Eos # (Auto) 0.0 Baso # (Auto) 0.0 WBC Differential Manual diff final Seg Neuts % (Manual) 43 Band Neuts % (Manual) 6 Lymphocytes % (Manual) 39 Monocytes % (Manual) 10 H Eosinophils % (Manual) 2 Abs Neuts (Manual) 1.2 L Differential Comment . Platelet Estimate Normal Platelet Morphology Normal Sodium Potassium Chloride Carbon Dioxide Anion Gap BUN Creatinine Estimated GFR Random Glucose Calcium Marrow Immunophenotype EBV (Quant-PCR) Quant Undetected BM Chromosome Interp Preliminary micro results at discharge 01/30/18 23:30 Aerobic Blood Culture - Preliminary Blood - Peripheral No growth in 3 days Anaerobic Blood Culture - Preliminary No growth in 3 days 01/30/18 23:20 Aerobic Blood Culture - Preliminary Blood - Peripheral No growth in 3 days Anaerobic Blood Culture - Preliminary No growth in 3 days - Impressions ITS Impressions Chest X-Ray 01/30/18 21:07 CONCLUSION: No active disease. Thoracic Spine CT 01/30/18 21:19 CONCLUSION: 1. Unremarkable CT of the thoracic spine. Discharge Plan - Discharge Disposition Patient Disposition: 01 Discharge Home - Discharge Condition Condition: Stable - Discharge Order Discharge Orders: Discharge Order (Routine); Ordered 02/03/18 Ordered By: Ananda Fisher - Discharge Details Discharge Comment: Please DC when [facility] for hematology Follow up is ready. CM aware. - Physicians Team Primary Care Provider: Primary Care Physici,No Attending Provider: Abdirahman Gu Other Providers: Silverio Heredia MD
[2018-02-03 10:42] LABS: Eosinophils 7 % (0-4); Lymphocytes 46 % (9-44); Monocytes 18 % (0-8); Tallied Nucleated RBC 3 (0-0)
[2018-02-03 10:44] LABS: Platelet Estimate Normal (Normal); Platelet Morphology Normal (Normal)
[2018-02-03] MEDS: Sod Chloride 0.9% Inj 1,000 ML IV.CONT SCH (11:57)
--- NOTE | 2018-02-04 08:05 | CT ---
EXAM DATE: 02/02/2018 5:27 PM EDT AGE/SEX: 22 years / Male INDICATIONS: Neutropenia CLINICAL DATA: This is the patient's initial encounter. Patient reports that signs and symptoms have been present for 1 day and indicates a pain score of 0/10. MEDICAL/SURGICAL HISTORY: None. None. COMPARISON: No prior exams available for comparison. SEDATION TIME (min): 30 min BIOPSY SITE: Left bone marrow MEDICATION(S): 3.5 midazolam (Versed) IV 150 fentanyl (Sublimaze) IV DEVICE(S): 11 gauge On-Control needle One core specimen(s) sent to the laboratory for pathologic evaluation. . . PROCEDURE: CT guided Left bone marrow biopsy Prior to the procedure informed consent was obtained. Any appropriate prior imaging studies were rev iewed. Using automated exposure control and adjustment of the mA and/or kV according to patient size , radiation dose was kept as low as reasonably achievable to obtain optimal diagnostic quality images . DICOM format image data is available electronically for review and comparison. The site was prepped in a sterile fashion. Full sterile technique was used, including cap, mask, andi rile gloves and gown and a large sterile sheet. Hand hygiene and 2% chlorhexidine and/or betadine/al cohol prep was utilized per protocol for cutaneous antisepsis. The skin and subcutaneous tissues wer e infiltrated with local anesthetic solution. With CT guidance the previously identified target was localized. Biopsy was performed using the presc ribed needle as above. Following biopsy marrow aspiration was performed with repeat puncture. [place] te hemostasis was obtained with compression at the puncture site. Follow-up CT scan reveals no hemorrhage. Conscious sedation was performed with the prescribed dosages and duration as above in the presence of an independent trained radiology nurse to assist in the monitoring of the patient. EKG and oximetry remained stable throughout the procedure. The patient tolerated the procedure well and there were no complications. The patient was sent to Radiology Outpatient Unit in stable condition. CONCLUSION: 1. Uncomplicated CT guided bone marrow aspirate. 2. Uncomplicated CT guided bone marrow biopsy. Electronically signed by: Marek Hathaway MD 02/04/2018 8:04 AM EDT
== END 2018-02-03 16:12 | disposition home or self-care (01) ==
LOC: NEPE 20:30 → NEDA 23:18 → N06 01-31 01:20
PROVIDERS: ADMIT Hospitalist; ATTEND Hospitalist